=== PATIENT | male | born 1980 | race Two or more races ===

== ENCOUNTER 2023-07-20 08:16 | Emergency (ER) | payer SELFPAY ==
[~2023-07-20] VITALS: Ht 182.9 cm; Wt 82.5 kg
[2023-07-20 08:16] VITALS: BP 151/101; TEMP 96.1; O2SAT 98
== END 2023-07-20 11:09 | disposition left against medical advice (07) ==
LOC: M ED 09:37
DX: Z53.21 Procedure and treatment not carried out due to patient leaving prior to being seen by health care provider (principal)

== ENCOUNTER 2023-12-14 13:52 | Emergency (ER) | payer SELFPAY ==
[~2023-12-14] VITALS: Ht 180.3 cm; Wt 87.0 kg
[2023-12-14 13:53] VITALS: BP 131/84; TEMP 97.3; O2SAT 100
== END 2023-12-14 14:02 | disposition left against medical advice (07) ==
LOC: M ED 13:52
DX: Z53.21 Procedure and treatment not carried out due to patient leaving prior to being seen by health care provider (principal)

== ENCOUNTER 2023-12-25 19:07 | Inpatient (IN) | payer MEDICAID, SELFPAY ==
[~2023-12-25] VITALS: Ht 182.9 cm; Wt 96.4 kg
[2023-12-25 20:28] LABS: BASO # 0.1 10^3/uL (0.0-0.2); BASO % 0.3 % (0.0-1.0); EOS # 0.1 10^3/uL (0.0-0.5); EOS % 0.4 % (0.0-3.0); HEMATOCRIT 36.7 % (42.0-52.0); HEMOGLOBIN 12.3 g/dl (13.5-17.5); LYMPH # 1.7 10^3/uL (1.5-5.0); LYMPH % 9.1 % (24.0-44.0); MEAN CORPUSCULAR HEMOGLOBIN 29.6 pg (27.0-33.0); MEAN CORPUSCULAR HGB CONC 33.5 g/dl (32.0-36.5); MEAN CORPUSCULAR VOLUME 88.2 fl (80.0-96.0); MONO # 1.2 10^3/uL (0.0-0.8); MONO % 6.3 % (2.0-8.0); NEUTROPHILS # 15.4 10^3/uL (1.5-8.5); NEUTROPHILS % 83.1 % (36.0-66.0); PLATELET COUNT, AUTOMATED 298 10^3/uL (150-450); RED BLOOD COUNT 4.16 10^6/uL (4.30-6.10); WHITE BLOOD COUNT 18.5 10^3/uL (4.0-10.0)
[2023-12-25] MEDS: NS 1,000 ML IV ONE ×2 (20:30)
[2023-12-25 20:45] LABS: INR 1.18; PARTIAL THROMBOPLASTIN TIME 31.4 SECONDS (24.8-34.2); PROTHROMBIN TIME 14.7 SECONDS (12.5-14.5)
[2023-12-25 20:51] LABS: AMYLASE 45 U/L (30-118)
[2023-12-25 20:52] LABS: ALBUMIN 3.7 G/DL (3.2-5.2); ALKALINE PHOSPHATASE 126 U/L (46-116); ALT/SGPT 100 U/L (7.0-40); AST/SGOT 66 U/L (<34); BILIRUBIN,DIRECT < 0.1 MG/DL (<0.4); BILIRUBIN,TOTAL 0.3 MG/DL (0.3-1.2); BLOOD UREA NITROGEN 14 MG/DL (9-23); CARBON DIOXIDE LEVEL 26 MMOL/L (20-31); CHLORIDE LEVEL 101 MMOL/L (98-107); GLOMERULAR FILTRATION RATE > 60.0 (>60); GLUCOSE, FASTING 99 MG/DL (60-100); SODIUM LEVEL 135 MMOL/L (136-145)
[2023-12-25 20:59] LABS: PROCALCITONIN 0.15 ng/ml
[2023-12-25] MEDS ORDERED: CENT1TAB2 PO (22:11)
[2023-12-25] MEDS ORDERED: HOME MED LIST COMPLETE! XX SCH (22:15)
[2023-12-25] MEDS: VANCOMYCIN HCL 1,000 MG, VIAL MATE ADAPTER 1 EACH in D5W 250 ML IV ONE ×2 (22:15→23:51)
[2023-12-25] MEDS: cefTRIAXone SOD 1 GM in D5W MINI-BAG PLUS 50 ML IV ONE (22:15)
[2023-12-25] MEDS ORDERED: ACETAMINOPHEN TAB 650MG DOSE (2X325MG) PO PRN (23:30)
[2023-12-25] MEDS ORDERED: MOM 30ML SUSPENSION UDC PO PRN (23:30)
[2023-12-25 23:36] LABS: APPEARANCE, URINE HAZY (CLEAR); BACTERIA, URINE AUTO NEGATIVE (NEGATIVE); BILIRUBIN, URINE AUTO NEGATIVE (NEGATIVE); BLOOD, URINE BLOOD NEGATIVE (NEGATIVE); COLOR, URINE YELLOW (YELLOW); GLUCOSE, URINE (UA) AUTO NEGATIVE (NEGATIVE); GRANULAR CAST, URINE AUTO 3 /LPF; KETONE, URINE AUTO NEGATIVE (NEGATIVE); LEUKOCYTE ESTERASE, URINE AUTO NEGATIVE (NEGATIVE); MUCUS, URINE SMALL (NEGATIVE); NITRITE, URINE AUTO NEGATIVE (NEGATIVE); PROTEIN, URINE AUTO 1+ mg/dL (NEGATIVE); RBC, URINE AUTO 3 /HPF (0-3); SPECIFIC GRAVITY URINE AUTO 1.021 (1.002-1.035); SQUAMOUS EPITHELIAL CELL UR AU 0 /HPF (0-6); UROBILINOGEN, URINE AUTO 0.2 mg/dL (0.0-2.0); WBC, URINE AUTO 8 /HPF (0-3)
[2023-12-25] MEDS: NS 1,000 ML IV SCH (23:51)
[2023-12-26] MEDS: PIPERACILLIN/TAZOBACTAM SOD 4.5 GM in D5W MINI-BAG PLUS 50 ML IV SCH (05:08)
[2023-12-26 07:07] LABS: HEMATOCRIT 31.9 % (42.0-52.0); HEMOGLOBIN 10.7 g/dl (13.5-17.5); MEAN CORPUSCULAR HEMOGLOBIN 29.7 pg (27.0-33.0); MEAN CORPUSCULAR HGB CONC 33.5 g/dl (32.0-36.5); MEAN CORPUSCULAR VOLUME 88.6 fl (80.0-96.0); PLATELET COUNT, AUTOMATED 248 10^3/uL (150-450); WHITE BLOOD COUNT 17.9 10^3/uL (4.0-10.0)
[2023-12-26 07:43] LABS: ALBUMIN 2.7 G/DL (3.2-5.2); ALKALINE PHOSPHATASE 108 U/L (46-116); ALT/SGPT 77 U/L (7.0-40); AST/SGOT 48 U/L (<34); BILIRUBIN,TOTAL 0.5 MG/DL (0.3-1.2); BLOOD UREA NITROGEN 7 MG/DL (9-23); CALCIUM LEVEL 8.4 MG/DL (8.5-10.1); CARBON DIOXIDE LEVEL 25 MMOL/L (20-31); CHLORIDE LEVEL 107 MMOL/L (98-107); CREATININE FOR GFR 0.72 MG/DL (0.70-1.30); GLOMERULAR FILTRATION RATE > 60.0 (>60); GLUCOSE, FASTING 111 MG/DL (60-100); POTASSIUM SERUM 4.2 MMOL/L (3.5-5.1); SODIUM LEVEL 137 MMOL/L (136-145); TOTAL PROTEIN 6.2 G/DL (5.7-8.2)
[2023-12-26] MEDS ORDERED: ISOVUE-370 76% 100ML VIAL As Ordered ONE (07:59)
[2023-12-26] MEDS: VANCOMYCIN HCL 1,000 MG, VIAL MATE ADAPTER 1 EACH in NS 250 ML IV SCH (08:36)
[2023-12-26] MEDS: ENOXAPARIN 40MG/0.4ML SYRINGE (J1650 PER 10MG) SC SCH (08:37)
[2023-12-26 20:00] VITALS: BP 106/66; TEMP 98.2; O2SAT 95
[2023-12-27 04:00] VITALS: BP 103/65; TEMP 98.2; O2SAT 97
[2023-12-27 08:04] LABS: BASO # 0.1 10^3/uL (0.0-0.2); BASO % 0.6 % (0.0-1.0); EOS # 0.2 10^3/uL (0.0-0.5); EOS % 1.2 % (0.0-3.0); HEMOGLOBIN 10.9 g/dl (13.5-17.5); LYMPH # 1.7 10^3/uL (1.5-5.0); MEAN CORPUSCULAR HEMOGLOBIN 29.5 pg (27.0-33.0); MEAN CORPUSCULAR VOLUME 89.4 fl (80.0-96.0); MONO # 0.9 10^3/uL (0.0-0.8); MONO % 6.1 % (2.0-8.0); NEUTROPHILS # 11.4 10^3/uL (1.5-8.5); NEUTROPHILS % 78.7 % (36.0-66.0); PLATELET COUNT, AUTOMATED 265 10^3/uL (150-450); RED BLOOD COUNT 3.69 10^6/uL (4.30-6.10); WHITE BLOOD COUNT 14.5 10^3/uL (4.0-10.0)
[2023-12-27 08:24] LABS: VANCOMYCIN LEVEL TROUGH 8.7 UG/ML (10.0-20.0)
[2023-12-27 08:25] LABS: BLOOD UREA NITROGEN 6 MG/DL (9-23); CALCIUM LEVEL 8.1 MG/DL (8.5-10.1); CARBON DIOXIDE LEVEL 28 MMOL/L (20-31); CHLORIDE LEVEL 105 MMOL/L (98-107); CREATININE FOR GFR 0.74 MG/DL (0.70-1.30); GLOMERULAR FILTRATION RATE > 60.0 (>60); GLUCOSE, FASTING 107 MG/DL (60-100); POTASSIUM SERUM 4.1 MMOL/L (3.5-5.1); SODIUM LEVEL 138 MMOL/L (136-145)
[2023-12-27] MEDS: VANCOMYCIN HCL 750 MG, VIAL MATE ADAPTER 1 EACH in D5W 250 ML IV SCH (12:52)
[2023-12-27 13:19] VITALS: BP 112/71; TEMP 98.1; O2SAT 99
[2023-12-27] MEDS: VANCOMYCIN HCL 500 MG in D5W MINI-BAG PLUS 100 ML IV SCH (14:01)
[2023-12-27 20:07] VITALS: BP 105/69; TEMP 98.1; O2SAT 99
[2023-12-28 04:51] VITALS: BP 114/73; TEMP 97.9; O2SAT 98
[2023-12-28] MEDS: DOXYCYCLINE HYCLATE 100MG TABLET PO SCH (08:52)
[2023-12-28] MEDS: ceFAZolin SOD 1 GM in D5W MINI-BAG PLUS 50 ML IV SCH (08:52)
[2023-12-28] MEDS ORDERED: CEPH500C PO (13:26)
[2023-12-28 18:43] LABS: BASO # 0.1 10^3/uL (0.0-0.2); BASO % 0.8 % (0.0-1.0); EOS # 0.3 10^3/uL (0.0-0.5); EOS % 2.3 % (0.0-3.0); HEMATOCRIT 35.3 % (42.0-52.0); HEMOGLOBIN 11.8 g/dl (13.5-17.5); LYMPH # 2.5 10^3/uL (1.5-5.0); LYMPH % 18.4 % (24.0-44.0); MEAN CORPUSCULAR HGB CONC 33.4 g/dl (32.0-36.5); MEAN CORPUSCULAR VOLUME 89.8 fl (80.0-96.0); MONO # 0.7 10^3/uL (0.0-0.8); NEUTROPHILS # 9.1 10^3/uL (1.5-8.5); NEUTROPHILS % 68.5 % (36.0-66.0); PLATELET COUNT, AUTOMATED 372 10^3/uL (150-450); RED BLOOD COUNT 3.93 10^6/uL (4.30-6.10); WHITE BLOOD COUNT 13.3 10^3/uL (4.0-10.0)
[2023-12-28 18:49] LABS: ERYTHROCYTE SEDIMENTATION RATE 101 mm/hr (0-15)
[2023-12-28 19:09] LABS: PERCENT SATURATION 10.5 % (19.7-50.0)
[2023-12-28 19:11] LABS: FERRITIN 212.4 NG/ML (10.5-307.3)
[2023-12-28 19:20] LABS: PROCALCITONIN <0.04 ng/ml
[2023-12-28 19:26] LABS: ALBUMIN 2.7 G/DL (3.2-5.2); ALKALINE PHOSPHATASE 120 U/L (46-116); ALT/SGPT 137 U/L (7.0-40); AST/SGOT 82 U/L (<34); BILIRUBIN,TOTAL < 0.2 MG/DL (0.3-1.2); BLOOD UREA NITROGEN 7 MG/DL (9-23); CALCIUM LEVEL 8.7 MG/DL (8.5-10.1); CARBON DIOXIDE LEVEL 27 MMOL/L (20-31); CHLORIDE LEVEL 104 MMOL/L (98-107); CREATININE FOR GFR 0.66 MG/DL (0.70-1.30); GLOMERULAR FILTRATION RATE > 60.0 (>60); GLUCOSE, FASTING 137 MG/DL (60-100); POTASSIUM SERUM 3.9 MMOL/L (3.5-5.1); SODIUM LEVEL 136 MMOL/L (136-145); TOTAL PROTEIN 6.7 G/DL (5.7-8.2)
[2023-12-28 20:18] VITALS: BP 114/69; TEMP 97.9; O2SAT 98
[2023-12-29 04:45] VITALS: BP 118/72; TEMP 97.5; O2SAT 98
[2023-12-29 06:40] LABS: HEMATOCRIT 36.5 % (42.0-52.0); MEAN CORPUSCULAR HEMOGLOBIN 29.8 pg (27.0-33.0); MEAN CORPUSCULAR HGB CONC 32.9 g/dl (32.0-36.5); MEAN CORPUSCULAR VOLUME 90.6 fl (80.0-96.0); PLATELET COUNT, AUTOMATED 391 10^3/uL (150-450); RED BLOOD COUNT 4.03 10^6/uL (4.30-6.10); WHITE BLOOD COUNT 13.6 10^3/uL (4.0-10.0)
[2023-12-29 06:55] LABS: ERYTHROCYTE SEDIMENTATION RATE 97 mm/hr (0-15)
[2023-12-29 07:06] LABS: ALBUMIN 2.6 G/DL (3.2-5.2); ALKALINE PHOSPHATASE 116 U/L (46-116); ALT/SGPT 191 U/L (7.0-40); AST/SGOT 118 U/L (<34); BILIRUBIN,TOTAL 0.2 MG/DL (0.3-1.2); BLOOD UREA NITROGEN 7 MG/DL (9-23); CARBON DIOXIDE LEVEL 28 MMOL/L (20-31); CHLORIDE LEVEL 105 MMOL/L (98-107); CHOLESTEROL LEVEL 158 MG/DL (<200); CHOLESTEROL RISK RATIO 7.97 (<5); CREATININE FOR GFR 0.65 MG/DL (0.70-1.30); GLOMERULAR FILTRATION RATE > 60.0 (>60); GLUCOSE, FASTING 101 MG/DL (60-100); HDL CHOLESTEROL 19.8 MG/DL (>40); LDL CHOLESTEROL 119.8 MG/DL (<100); NON-HDL-C 138.2 MG/DL; POTASSIUM SERUM 4.4 MMOL/L (3.5-5.1); SODIUM LEVEL 138 MMOL/L (136-145); TOTAL PROTEIN 6.8 G/DL (5.7-8.2); TRIGLYCERIDES LEVEL 92 MG/DL (<150)
[2023-12-29 07:22] LABS: HEPATITIS B SURFACE ANTIGEN NEGATIVE (NEGATIVE)
[2023-12-29 07:36] LABS: ATYPICAL LYMPH 1 % (0-5); BASOPHILS 2 % (0-1); EOSINOPHILS 3 % (0-3); LYMPHOCYTES 22 % (16-44); METAMYELOCYTES 2 % (0-0); MONOCYTES 5 % (0-5); MYELOCYTES 1 % (0-0); NEUTROPHILS 61 % (28-66)
[2023-12-29 07:37] LABS: PLATELET ESTIMATE NORMAL (NORMAL)
[2023-12-29 07:42] LABS: HEPATITIS B CORE ANTIBODY IGM NEGATIVE (NEGATIVE)
[2023-12-29 07:43] LABS: HEPATITIS C VIRUS ABY INDEX < 0.02 INDEX (<0.8)
[2023-12-31 15:17] LABS: ANA SCREEN, IFA NEGATIVE (NEGATIVE)
[2024-01-01 02:03] LABS: HEMOGLOBINOPATHY EVAL HCT 38.8 % (38.5-50.0); HEMOGLOBINOPATHY EVAL HGB 12.2 g/dL (13.2-17.1); HEMOGLOBINOPATHY EVAL HGB A 97.2 % (>96.0); HEMOGLOBINOPATHY EVAL HGB A2 2.8 % (2.0-3.2); HEMOGLOBINOPATHY EVAL MCH 29.3 pg (27.0-33.0); HEMOGLOBINOPATHY EVAL MCV 93.3 fL (80.0-100.0); HEMOGLOBINOPATHY EVAL RBC 4.16 Mill/uL (4.20-5.80); HEMOGLOBINOPATHY EVAL RDW 13.9 % (11.0-15.0)
== END 2023-12-29 10:40 | disposition home or self-care (01) | DRG 720 ==
LOC: M ED 19:07 → M ED INP 23:27 → M MS5PR 12-26 16:49
PROVIDERS: ADMIT Family Medicine; ATTEND General Practice
DX: A41.9 Sepsis, unspecified organism (principal); S81.801A Unspecified open wound, right lower leg, initial encounter; L03.115 Cellulitis of right lower limb; D64.9 Anemia, unspecified; X58.XXXA Exposure to other specified factors, initial encounter